=== PATIENT | male | born 1975 | race Two or more races ===

== ENCOUNTER 2023-03-10 07:56 | Emergency (ER) | payer OTHER ==
[~2023-03-10] VITALS: Ht 180.3 cm; Wt 99.8 kg
[2023-03-10] MEDS ORDERED: BIKTARVY 30-121 EACH PO (08:04)
[2023-03-10 09:58] LABS: ABG PO2 104.8 mmHg (80-100); ABG pCO2 33.9 mmHg (35-45); BASE EXCESS 0.4 mmol/l; BICARBONATE 23.6 mmol/l (23-25); SaO2 98.3 %; Tco2 24.6 mmol/l
[2023-03-10 10:11] LABS: HEMATOCRIT 44.8 % (39.0-48.0); HEMOGLOBIN 15.9 g/dL (13-16.00); MEAN CELL VOLUME 86.5 fL (80.0-100.00); MEAN CORPUSCULAR HEMOGLOBIN 30.6 pg (27.00-32.0); MEAN CORPUSCULAR HGB CONC 35.4 g/dl (32.0-36.0); PLATELET COUNT 277 K/uL (150-450); RED BLOOD COUNT 5.18 M/uL (4.00-6.00)
[2023-03-10 10:23] LABS: allen test SATISFACTORY; puncture site RADIAL LEFT
[2023-03-10 10:24] LABS: o2 21 %
== END 2023-03-10 11:00 | disposition home or self-care (01) ==
LOC: ER 07:56
PROVIDERS: General Practice
DX: R42 Dizziness and giddiness (principal); T59.891A Toxic effect of other specified gases, fumes and vapors, accidental (unintentional), initial encounter; Y92.813 Airplane as the place of occurrence of the external cause